=== PATIENT | male | born 1940 | race Caucasian/White ===

== ENCOUNTER → 2017-03-24 | Outpatient (CLI) | payer OTHER | END | disposition disaster alternative care site (69) | LOC: GRAD 12:22 | DX: S42.122D Displaced fracture of acromial process, left shoulder, subsequent encounter for fracture with routine healing (principal); S42.192D Fracture of other part of scapula, left shoulder, subsequent encounter for fracture with routine healing; X58.XXXD Exposure to other specified factors, subsequent encounter ==